=== PATIENT | female | born 1980 | race Caucasian/White ===

== ENCOUNTER → 2019-11-19 | Outpatient (REF) | payer OTHER ==
[2019-11-19 17:43] LABS: BLOOD UREA NITROGEN 13 MG/DL (7-18); CALCIUM LEVEL 9.4 MG/DL (8.5-10.1); CARBON DIOXIDE LEVEL 27 MEQ/L (21-32); CHLORIDE LEVEL 108 MEQ/L (98-107); CREATININE FOR GFR 0.69 MG/DL (0.55-1.30); GLOMERULAR FILTRATION RATE > 60.0 (>58); GLUCOSE, FASTING 94 MG/DL (70-100); POTASSIUM SERUM 4.3 MEQ/L (3.5-5.1); SODIUM LEVEL 142 MEQ/L (136-145); THYROID STIMULATING HORMONE 0.736 uIU/ML (0.358-3.740)
[2019-11-19 17:46] LABS: BASO % 0.7 % (0.0-1.0); EOS % 0.9 % (0.0-3.0); HEMATOCRIT 36.3 % (36.0-47.0); HEMOGLOBIN 11.7 g/dl (12.0-15.5); LYMPH # 1.6 10^3/uL (1.5-5.0); LYMPH % 35.1 % (24.0-44.0); MEAN CORPUSCULAR HGB CONC 32.2 g/dl (32.0-36.5); MONO # 0.4 10^3/uL (0.0-0.8); MONO % 8.1 % (0.0-5.0); NEUTROPHILS # 2.4 10^3/uL (1.5-8.5); PLATELET COUNT, AUTOMATED 296 10^3/uL (150-450); RED BLOOD COUNT 3.78 10^6/uL (4.00-5.40); WHITE BLOOD COUNT 4.4 10^3/uL (4.0-10.0)
== END ==
LOC: M SFHCLERA 10:36
PROVIDERS: ATTEND Family Medicine
DX: R00.2 Palpitations (principal)

== ENCOUNTER → 2019-11-25 | Outpatient (REF) | payer OTHER ==
[2019-11-25 17:31] LABS: APPEARANCE, URINE HAZY (CLEAR); BACTERIA, URINE AUTO NEGATIVE (NEGATIVE); BILIRUBIN, URINE AUTO NEGATIVE (NEGATIVE); BLOOD, URINE BLOOD NEGATIVE (NEGATIVE); COLOR, URINE YELLOW (YELLOW); GLUCOSE, URINE (UA) AUTO NEGATIVE (NEGATIVE); KETONE, URINE AUTO TRACE mg/dL (NEGATIVE); LEUKOCYTE ESTERASE, URINE AUTO NEGATIVE (NEGATIVE); NITRITE, URINE AUTO NEGATIVE (NEGATIVE); PROTEIN, URINE AUTO NEGATIVE (NEGATIVE); RBC, URINE AUTO 0 /HPF (0-3); SPECIFIC GRAVITY URINE AUTO 1.021 (1.002-1.035); SQUAMOUS EPITHELIAL CELL UR AU 1 /HPF (0-6); UROBILINOGEN, URINE AUTO 0.2 mg/dL (0.0-2.0); WBC, URINE AUTO 0 /HPF (0-3)
== END ==
LOC: M SFHCLERA 16:47
PROVIDERS: ATTEND Family Medicine
DX: R35.0 Frequency of micturition (principal)

== ENCOUNTER → 2019-11-27 | Outpatient (CLI) | payer OTHER ==
--- NOTE | 2019-11-29 19:39 | HOLTMON ---
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 23 hours and 28 minutes were usable for analysis. Baseline mechanism was sinus rhythm with normal AV conduction and narrow QRS complex. Minimum HR was 44 bpm, average HR 73 bpm and maximum HR 130 bpm. There were no pauses, 1 PVC and 4 PAC's. No atrial fibrillation. There were total 7 manual transmissions with reported symptoms of palpitations and dizziness. All transmissions corresponded to sinus rhythm. Overall unremarkable Holter monitor. Electronically Signed on 11-29-2019 19:39:31 EST by Leyla Bob
== END ==
LOC: M EKG 10:05
PROVIDERS: ATTEND Family Medicine
DX: R00.2 Palpitations (principal)

== ENCOUNTER → 2020-03-14 | Outpatient (REF) | payer OTHER ==
[2020-03-14 18:02] LABS: BASO # 0.1 10^3/uL (0.0-0.2); BASO % 0.8 % (0.0-1.0); EOS # 0.1 10^3/uL (0.0-0.5); EOS % 1.1 % (0.0-3.0); HEMATOCRIT 38.1 % (36.0-47.0); HEMOGLOBIN 13.2 g/dl (12.0-15.5); LYMPH # 2.5 10^3/uL (1.5-5.0); LYMPH % 37.4 % (24.0-44.0); MEAN CORPUSCULAR HEMOGLOBIN 31.7 pg (27.0-33.0); MEAN CORPUSCULAR HGB CONC 34.6 g/dl (32.0-36.5); MEAN CORPUSCULAR VOLUME 91.6 fl (80.0-96.0); MONO # 0.4 10^3/uL (0.0-0.8); MONO % 6.5 % (0.0-5.0); NEUTROPHILS # 3.6 10^3/uL (1.5-8.5); NEUTROPHILS % 53.9 % (36.0-66.0); PLATELET COUNT, AUTOMATED 265 10^3/uL (150-450); RED BLOOD COUNT 4.16 10^6/uL (4.00-5.40); WHITE BLOOD COUNT 6.6 10^3/uL (4.0-10.0)
[2020-03-14 18:23] LABS: ALT/SGPT 21 U/L (12-78); BILIRUBIN,TOTAL 0.4 MG/DL (0.2-1.0); BLOOD UREA NITROGEN 11 MG/DL (7-18); CALCIUM LEVEL 9.1 MG/DL (8.5-10.1); CARBON DIOXIDE LEVEL 29 MEQ/L (21-32); CHLORIDE LEVEL 105 MEQ/L (98-107); CHOLESTEROL LEVEL 231 MG/DL (<200); CHOLESTEROL RISK RATIO 2.924 (<5); CREATININE FOR GFR 0.63 MG/DL (0.55-1.30); FERRITIN 42 NG/ML (8-252); FOLATE 14.6 NG/ML; GLOMERULAR FILTRATION RATE > 60.0 (>58); GLUCOSE, FASTING 105 MG/DL (70-100); HDL CHOLESTEROL 79 MG/DL (>40); LDL CHOLESTEROL 126 MG/DL (<100); NON-HDL-C 152 MG/DL; POTASSIUM SERUM 4.2 MEQ/L (3.5-5.1); SODIUM LEVEL 139 MEQ/L (136-145); TOTAL 25(OH) VITAMIN D 35.3 NG/ML (30.0-100.0); TRIGLYCERIDES LEVEL 129 MG/DL (<150); VITAMIN B12 LEVEL 679 PG/ML
== END ==
LOC: M SFHCPLAZ 15:16
PROVIDERS: ATTEND Family Medicine
DX: E03.9 Hypothyroidism, unspecified (principal); Z98.84 Bariatric surgery status; Z13.220 Encounter for screening for lipoid disorders

== ENCOUNTER → 2020-04-16 | Outpatient (CLI) | payer OTHER | LOC: M LAB 09:18 | PROVIDERS: ATTEND Surgery ==

== ENCOUNTER → 2020-04-19 | Outpatient (CLI) | payer OTHER ==
--- NOTE | 2020-04-19 23:34 | REP ---
BILATERAL DIAGNOSTIC MAMMOGRAM WITH 3D TOMOSYNTHESIS AND BILATERAL BREAST ULTRASOUND: Family history of breast cancer in maternal aunt at age 45. [facility] lifetime risk of breast cancer is 17.0%. HISTORY: Two palpable lumps 12 o'clock and 10 o'clock right breast as well as a palpable lump left upper outer quadrant. These areas are marked on the skin. Comparison made with prior mammogram 04/14/2019 and 10/15/2018. Moderate fibroglandular tissue is seen bilaterally. There is no mammographic evidence of a mass. No clustered microcalcifications are seen. Real-time sonographic evaluation of bilateral breasts performed at the site of the three palpable lumps. At the 1-o'clock region of the right breast at the site of the palpable lump, no discrete cystic or solid nodule is seen. At the 10-o'clock region of the right breast at the site of the palpable lump, approximately 7 cm from the nipple, there is a somewhat lobulated hypoechoic lesion measuring 1.6 x 1.6 x 0.8 cm. There does not appear to be significant internal blood flow with Doppler evaluation. This may represent a complex cyst, but a solid component cannot be excluded. Recommend ultrasound-guided sampling. At the site of the palpable lump left breast 1-o'clock region, no discrete cystic or solid nodule is seen. Volpara breast density is C. IMPRESSION: ACR 4, suspicious. No mammographic abnormality is seen bilaterally. There is no mammographic or sonographic abnormality at the site of the palpable lumps right breast 1 o'clock and left breast 1 o'clock. However, at the 10-o'clock position of the right breast approximately 7 cm from the nipple at the site of the palpable lump, there is a lobulated hypoechoic lesion measuring 1.6 x 1.6 x 0.8 cm. This may represent a complex cyst. I would recommend ultrasound-guided aspiration/biopsy. BIRADS 4: BI-RADS/ACR category 4 mammogram. Suspicious Abnormality - biopsy should be considered. This mammogram was interpreted with the aid of an FDA-approved computer-aided detection system. The patient states she/he had a clinical breast exam in 04/06. The patient letter being requested is M4.
== END ==
LOC: M WHC 13:55
PROVIDERS: ATTEND Surgery
DX: R92.8 Other abnormal and inconclusive findings on diagnostic imaging of breast (principal); Z80.3 Family history of malignant neoplasm of breast; N63.10 Unspecified lump in the right breast, unspecified quadrant; N63.20 Unspecified lump in the left breast, unspecified quadrant; I89.8 Other specified noninfective disorders of lymphatic vessels and lymph nodes
CPT/HCPCS: 76642; 77066; G0279

== ENCOUNTER → 2020-04-25 | Outpatient (CLI) | payer OTHER ==
--- NOTE | 2020-04-25 14:54 | REP ---
DIAGNOSTIC MAMMOGRAM, LEFT BREAST: Patient was recalled for additional views of the left breast and in particular the left axillary region to evaluate calcifications previously identified in left axillary lymph nodes. Comparison is made with prior studies of 10/15/2018 and 04/14/2019. Two left axillary lymph nodes are identified containing somewhat linear coarse calcifications. These are evaluated with additional magnification views. Comparing to the prior study in 2019, one of the lymph nodes demonstrated multiple punctate calcifications internally. These appear to have coalesced and become more coarse and benign in appearance. There is moderate diffuse fibroglandular tissue throughout the left breast. IMPRESSION: BIRADS 2: BI-RADS/ACR category 2 mammogram. Benign Findings. ACR 2 benign mammogram, left breast. Two lymph nodes are seen in the left axillary region. They demonstrate coarse benign-type calcifications, as discussed above.
--- NOTE | 2020-04-26 09:11 | REP ---
Clinical: Adenopathy by physical examination. Technique: Real time ricketts scale and color evaluation using linear high frequency transducer. Findings: Directed ultrasound examination of the right axillary region demonstrates multiple lymph nodes measuring up to 15 x 11 x 31 mm with other lymph nodes measuring roughly in the range of 6-11 mm maximal diameter. Directed ultrasound examination of the left axillary region demonstrates multiple lymph nodes measuring up to 25 x 8 x 18 mm with other lymph nodes measuring roughly in the range of 8-13 mm maximal diameter. Impression: Few mildly prominent but normal appearing bilateral axillary lymph nodes. Follow-up physical examination may be warranted.
== END ==
LOC: M WHC 10:31
PROVIDERS: ATTEND Surgery
DX: I89.8 Other specified noninfective disorders of lymphatic vessels and lymph nodes (principal); R92.1 Mammographic calcification found on diagnostic imaging of breast
CPT/HCPCS: 76882; 77065; G0279

== ENCOUNTER → 2020-05-04 | Outpatient (REF) | payer OTHER ==
[2020-05-04 11:57] LABS: BASO % 0.6 % (0.0-1.0); EOS # 0.1 10^3/uL (0.0-0.5); EOS % 0.7 % (0.0-3.0); HEMATOCRIT 38.7 % (36.0-47.0); HEMOGLOBIN 12.8 g/dl (12.0-15.5); LYMPH % 28.4 % (24.0-44.0); MEAN CORPUSCULAR HEMOGLOBIN 30.7 pg (27.0-33.0); MEAN CORPUSCULAR HGB CONC 33.1 g/dl (32.0-36.5); MEAN CORPUSCULAR VOLUME 92.8 fl (80.0-96.0); MONO # 0.5 10^3/uL (0.0-0.8); MONO % 6.5 % (0.0-5.0); NEUTROPHILS # 4.4 10^3/uL (1.5-8.5); NEUTROPHILS % 63.4 % (36.0-66.0); PLATELET COUNT, AUTOMATED 273 10^3/uL (150-450); RED BLOOD COUNT 4.17 10^6/uL (4.00-5.40); WHITE BLOOD COUNT 6.9 10^3/uL (4.0-10.0)
[2020-05-04 12:20] LABS: BLOOD UREA NITROGEN 11 MG/DL (7-18); C REACTIVE PROTEIN QUANTITATIV < 0.30 MG/DL (0.00-0.30); CALCIUM LEVEL 9.2 MG/DL (8.5-10.1); CARBON DIOXIDE LEVEL 30 MEQ/L (21-32); CHLORIDE LEVEL 104 MEQ/L (98-107); CREATININE FOR GFR 0.65 MG/DL (0.55-1.30); GLOMERULAR FILTRATION RATE > 60.0 (>58); GLUCOSE, FASTING 112 MG/DL (70-100); POTASSIUM SERUM 4.9 MEQ/L (3.5-5.1); SODIUM LEVEL 139 MEQ/L (136-145)
[2020-05-04 12:32] LABS: ERYTHROCYTE SEDIMENTATION RATE 7 mm/hr (0-20)
== END ==
LOC: M SFHCLERA 08:28
PROVIDERS: ATTEND Family Medicine
DX: M54.42 Lumbago with sciatica, left side (principal)

== ENCOUNTER → 2020-05-04 | Outpatient (CLI) | payer OTHER ==
--- NOTE | 2020-05-04 09:09 | REPPI ---
Clinical: Lumbar with left-sided sciatica. Technique: AP, lateral, flexion/extension, bilateral oblique and coned-down views of the lumbosacral spine. Findings: Alignment and lordosis maintained. No acute fracture / compression injury or subluxation. No spondylolysis or spondylolisthesis. Focal endplate sclerosis, disc space narrowing and mild hypertrophic facet changes noted at L5-S1. 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 Remainder examination is age-appropriate. Impression: 1. Early moderate focal degenerative spondylosis at L5-S1. 2. 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 Electronically Signed by Wong Villeda MD 05/04/2020 09:00 A
== END ==
LOC: M PLAIMG 08:29
PROVIDERS: ATTEND Family Medicine
DX: M54.42 Lumbago with sciatica, left side (principal); M47.816 Spondylosis without myelopathy or radiculopathy, lumbar region; Q76.49 Other congenital malformations of spine, not associated with scoliosis

== ENCOUNTER → 2020-05-11 | Outpatient (CLI) | payer OTHER ==
[2020-05-11 11:20] VITALS: BP 120/72
--- NOTE | 2020-05-11 14:16 | REP ---
DIAGNOSTIC MAMMOGRAM, RIGHT BREAST: Postbiopsy mammogram right breast performed. Patient had ultrasound guided biopsy of a hypoechoic lesion right breast region of 10-o'clock position is identified on the ultrasound of 04/19/2020. This was noted to be located 7 cm from the nipple. The mammogram shows a biopsy clip posteriorly in the upper outer quadrant of the right breast. Once again, moderate fibroglandular tissue is seen diffusely throughout the right breast.
--- NOTE | 2020-05-11 14:25 | REP ---
LEFT AXILLARY ULTRASOUND: Real-time sonographic evaluation of the left axillary region performed. There is a lymph node seen measuring 1.9 x 1.9 x 0.5 cm. There is an adjacent hypoechoic nodule measuring 4 x 6 x 5 mm.
--- NOTE | 2020-05-11 14:57 | REP ---
ULTRASOUND GUIDANCE FOR RIGHT BREAST BIOPSY: Ultrasound guidance was provided for Dr. Ravi who performed ultrasound guided biopsy of a hypoechoic lesion 10-o'clock position right breast, as seen on prior ultrasound 04/19/2020. The oval hypoechoic nodule is visualized on today's ultrasound images and the biopsy needle is seen in that region.
--- NOTE | 2020-05-19 15:18 | ROOPDOC ---
[facility] Report Of Operation Report of Operation DATE OF PROCEDURE: 05/11/20 PREPROCEDURE DIAGNOSES: right breast mass, possible complex cyst and left axillary lymph node with calcifications POSTPROCEDURE DIAGNOSES: same PROCEDURE: Right breast ultrasound guided attempted aspiration of R breast cystic lesion and followup biopsy with clip placement of the same lesion SURGEON: Tess Winter CLEARANCE CENTER MANAGER: ANESTHESIA: local ESTIMATED BLOOD LOSS: Approximately 1 mL. COMPLICATIONS: none REMARKS: Right breast mass was not cystic, R breast mass biopsy done successfully, clip is in expected location on post bx mammogram, Unable to identify the calcifications in the left axillary lymph node- additional L US images were obtained and sent to radiology for evaluation. DESCRIPTION OF PROCEDURE: Lidocaine 1% LOT [id number] Expiration 05/10 Sodium Bicarbonate 8.4% LOT [id number] Expiration 05/08 Hydromark clip LOT [id number] Expiration 12/30 SHAPE 4 Bx device: BARD [id number] x10 cm LOT [id number] Expiration 01/10 Informed consent was obtained. The most common risk and possible complications including bleeding, hematoma, bruising, infection, injury to surrounding structures were explained to the patient and she expressed understanding. Patient was placed on the bed in the supine position. Appropriate time out was done stating patients name, date of , and the procedure to be performed. The right breast was prepped and draped in the usual fashion. The ultrasound was used to confirm the location of the lesion in the right breast at 10:00 7 centimeters from the nipple. Plain Lidocaine 1% and 8.4% sodium bicarbonate 10:1 mix was used to anesthetize the skin, the biopsy site and tissues along the anticipated biopsy tract. 18G needle was used to attempt aspiration of the right breast lesion which was thought to be possible complex cyst. No fluid came out. We proceeded with the biopsy part. Small skin incision was made with blade number 11. BARD Marquee 14G cannula with introducer ([id number]) was inserted through the incision and advanced under the ultrasound guidance to position immediately adjacent to the lesion. Next, the introducer was removed and BARD Marquee 14G biopsy device was places in the cannula. Pre-biopsy imaging, and post-biopsy imaging were captured. Five good core biopsies were taken at various levels of the lesion. Specimen was placed in formaldehyde, labeled with appropriate biopsy site and patients name, and sent to pathology for evaluation. Next, the biopsy device was withdrawn and a clip introducer was inserted into the biopsy site via the cannula. The Hydromark clip was deployed under sonographic guidance. Post-clip placement image was captured. Manual pressure over the biopsy cavity and tract was held after the clip introducer was withdrawn. No bleeding was noted upon removal of the pressure. Next, we repositioned patient and attempted L axillary lymph node biopsy. The calcifications were not able to be found on the US however a possibly enlarged lymph node and adjacent hypoechoic lesion were found in low axilla. Additional sonographic views were sent to Radiology department for evaluation. Left axillary US biopsy was aborted at this time and will be done after additional imaging is reviewed by Radiology. Patient agrees with this plan. Post-biopsy mammogram of the right breast was obtained and showed clip in expected position. Postprocedural dressing was placed. Patient tolerated procedure well. Discharge instructions were discussed with the patient and she expressed understanding. TESS STAPLETON DO May 19, 2020 13:51
== END ==
LOC: M WHCPRO 08:48
PROVIDERS: ATTEND Surgery
DX: N60.21 Fibroadenosis of right breast (principal)

== ENCOUNTER → 2020-05-16 | Outpatient (REF) | payer OTHER ==
[2020-05-16 18:07] LABS: BLOOD UREA NITROGEN 10 MG/DL (7-18); CALCIUM LEVEL 9.2 MG/DL (8.5-10.1); CARBON DIOXIDE LEVEL 31 MEQ/L (21-32); CHLORIDE LEVEL 104 MEQ/L (98-107); CREATININE FOR GFR 0.55 MG/DL (0.55-1.30); GLOMERULAR FILTRATION RATE > 60.0 (>58); GLUCOSE, FASTING 86 MG/DL (70-100); POTASSIUM SERUM 4.2 MEQ/L (3.5-5.1); SODIUM LEVEL 138 MEQ/L (136-145)
== END ==
LOC: M PLALAB 15:33
PROVIDERS: ATTEND Surgery
DX: N63.20 Unspecified lump in the left breast, unspecified quadrant (principal); R59.9 Enlarged lymph nodes, unspecified; I89.8 Other specified noninfective disorders of lymphatic vessels and lymph nodes

== ENCOUNTER → 2020-07-20 | Outpatient (CLI) | payer OTHER ==
[2020-07-20 16:10] VITALS: BP 116/70
--- NOTE | 2020-07-21 04:37 | ROOPDOC ---
[facility] Report Of Operation Report of Operation DATE OF PROCEDURE: 07/20/20 PREPROCEDURE DIAGNOSES: left axillary lymph node with calcifications and left suspicious hypoechoic nodule in axilla POSTPROCEDURE DIAGNOSES: left axillary lymph node with calcifications and left suspicious hypoechoic nodule in axilla PROCEDURE: US guided biopsy of the left axillary lymph node and left axillary hypoechoic nodule with clips placement SURGEON: Tess Stapleton AGENCY TRAINER: ANESTHESIA: local ESTIMATED BLOOD LOSS: minimal COMPLICATIONS: none REMARKS: clips seen in good position, calcifications were seen in the lymph node cores DESCRIPTION OF PROCEDURE: Lidocaine 1% LOT [id number] Expiration 04/2023 Sodium Bicarbonate 8.4% LOT [id number] Expiration 04/2021 LYMPH NODE BX Hydromark clip LOT [id number] Expiration 03/2023 SHAPE 3 Bx device: TEMNO 18G LOT [id number] Expiration 03/2024 (NEW DEVICE PER SITE) HYPOECHOIC LESION BX Hydromark clip LOT [id number] Expiration 03/2023 SHAPE 4 Bx device: TEMNO 18G LOT [id number] Expiration 03/2024 (NEW DEVICE PER SITE) Informed consent was obtained. The most common risk and possible complications including bleeding, hematoma, bruising, infection, injury to surrounding structures were explained to the patient and she expressed understanding. Patient was placed on the bed in the supine position. Appropriate time out was done stating patients name, date of , and the procedure to be performed. The left axilla was prepped and draped in the usual fashion. The ultrasound was used to confirm the location of the suspicious lymph node and the adjacent mueller spicious hypoechoic nodule. Both lesions were located in lower medial aspect of left axilla. Procedure was started with biopsy of the suspicious lymph node. Plain Lidocaine 1% and 8.4% sodium bicarbonate 10:1 mix was used to anesthetize the skin, the bi opsy site and tissues along the anticipated biopsy tract. TEMNO 18 G biopsy device introducer with canula was placed though the skin and advanced under the ultrasound guidance to position immediately adjacent to the lymph node. Next, the introducer was removed and TEMNO 18 G biopsy device places in the cannula. Pre-biopsy imaging, and post-biopsy imaging were captured. Five good core biopsies were taken at various levels of the lymph node. Radiography was done of the collected cores and calcifications were observed in the cores. Specimen was then placed in formaldehyde, labeled with appropriate biopsy site and patients name, and sent to pathology for evaluation. Next, the biopsy device was withdrawn and a clip introducer was inserted into the biopsy site. The SHAPE 3 Hydromark clip was deployed under sonographic guidance. Post-clip placement image was captured. Manual pressure over the biopsy cavity and tract was held after the clip introducer was withdrawn. No bleeding was noted upon removal of the pressure. At this point, our attention was turned toward previously identified suspicious hypoechoic nodule seen in the proximity of the lymph node. Plain Lidocaine 1% and 8.4% sodium bicarbonate 10:1 mix was used to anesthetize the skin, the biopsy site and tissues along the anticipated biopsy tract. New TEMNO 18 G biopsy device introducer with canula was placed though the skin and advanced under the ultrasound guidance to position immediately adjacent to the hypoechoic nodule. Next, the introducer was removed and TEMNO 18 G biopsy device places in the cannula. Pre-biopsy imaging, and post-biopsy imaging were captured. Five good core biopsies were taken at various levels of the lesion. Radiography was done of the collected cores and no calcifications were observed in the cores. Specimen was then placed in formaldehyde, labeled with appropriate biopsy site and patients name, and sent to pathology for evaluation. Next, the biopsy device was withdrawn and a clip introducer was inserted into the biopsy site. The SHAPE 4 Hydromark clip was deployed under sonographic guidance. Post-clip placement image was captured. Manual pressure over the biopsy cavity and tract was held after the clip introducer was withdrawn. No bleeding was noted upon removal of the pressure. Post-biopsy mammogram of the left axilla was obtained and showed clips in expected position. Postprocedural dressing was placed. Patient tolerated procedure well. Discharge instructions were discussed with the patient and she expressed understanding. TESS STAPLETON DO Jul 21, 2020 04:37
--- NOTE | 2020-08-16 14:29 | REP ---
POST-BIOPSY MAMMOGRAM, LEFT BREAST TECHNIQUE: MLO and axillary CC views of the left breast were performed following ultrasound-guided biopsy of left axillary lymph nodes. FINDINGS: Two biopsy clips are seen adjacent to a lymph node containing diffuse amorphous radiodensity/calcification MTDD
--- NOTE | 2020-08-16 14:30 | REP ---
ULTRASOUND GUIDANCE FOR LEFT AXILLARY BIOPSY Ultrasound guidance was provided for Dr. Ravi for biopsy of two separate sites in the left axilla. A linear biopsy needle is visualized on several images. CHANTEL
--- NOTE | 2020-08-16 14:30 | REP ---
SPECIMEN RADIOGRAPH TECHNIQUE: Following ultrasound guided biopsy of lymph nodes containing calcifications in the left axillary region, specimen radiograph is performed. FINDINGS: A limited amount of soft tissue material was obtained. These obtained questionable tiny radiodensities. MTDD
== END ==
LOC: M WHCPRO 10:59
PROVIDERS: ATTEND Surgery
DX: R59.9 Enlarged lymph nodes, unspecified (principal); N63.20 Unspecified lump in the left breast, unspecified quadrant

== ENCOUNTER → 2020-08-29 | Outpatient (REF) | payer OTHER | LOC: M SFHCLERA 11:06 | PROVIDERS: ATTEND Nurse Practitioner Family | DX: R30.0 Dysuria (principal) ==

== ENCOUNTER → 2020-11-25 | Outpatient (REF) | payer OTHER ==
[2020-11-25 13:50] LABS: BASO % 0.8 % (0.0-1.0); EOS % 1.1 % (0.0-3.0); HEMATOCRIT 36.9 % (36.0-47.0); HEMOGLOBIN 11.8 g/dl (12.0-15.5); LYMPH # 1.7 10^3/uL (1.5-5.0); LYMPH % 44.4 % (24.0-44.0); MEAN CORPUSCULAR HEMOGLOBIN 29.3 pg (27.0-33.0); MEAN CORPUSCULAR VOLUME 91.6 fl (80.0-96.0); MONO # 0.3 10^3/uL (0.0-0.8); MONO % 7.1 % (0.0-5.0); NEUTROPHILS # 1.8 10^3/uL (1.5-8.5); NEUTROPHILS % 46.3 % (36.0-66.0); PLATELET COUNT, AUTOMATED 273 10^3/uL (150-450); RED BLOOD COUNT 4.03 10^6/uL (4.00-5.40); WHITE BLOOD COUNT 3.8 10^3/uL (4.0-10.0)
[2020-11-25 14:28] LABS: ALT/SGPT 21 U/L (12-78); BILIRUBIN,TOTAL 0.6 MG/DL (0.2-1.0); BLOOD UREA NITROGEN 14 MG/DL (7-18); CARBON DIOXIDE LEVEL 29 MEQ/L (21-32); CHLORIDE LEVEL 107 MEQ/L (98-107); CHOLESTEROL LEVEL 231 MG/DL (<200); CHOLESTEROL RISK RATIO 2.221 (<5); CREATININE FOR GFR 0.61 MG/DL (0.55-1.30); FERRITIN 13 NG/ML (8-252); FREE T4 0.91 NG/DL (0.76-1.46); GLOMERULAR FILTRATION RATE > 60.0 (>58); GLUCOSE, FASTING 84 MG/DL (70-100); HDL CHOLESTEROL 104 MG/DL (>40); IRON (FE) 90 UG/DL (50-170); LDL CHOLESTEROL 116 MG/DL (<100); NON-HDL-C 127 MG/DL; PERCENT SATURATION 24.7 % (13.2-45.0); POTASSIUM SERUM 4.3 MEQ/L (3.5-5.1); SODIUM LEVEL 141 MEQ/L (136-145); TOTAL 25(OH) VITAMIN D 30.5 NG/ML (30.0-100.0); TOTAL IRON BINDING CAPACITY 365 UG/DL (250-450); TOTAL PROTEIN 6.6 GM/DL (6.4-8.2); TRIGLYCERIDES LEVEL 55 MG/DL (<150); VITAMIN B12 LEVEL 620 PG/ML (247-911)
== END ==
LOC: M SFHCLERA 10:24
PROVIDERS: ATTEND Family Medicine
DX: E03.9 Hypothyroidism, unspecified (principal); E78.5 Hyperlipidemia, unspecified; Z98.84 Bariatric surgery status

== ENCOUNTER → 2020-12-26 | Outpatient (CLI) | payer OTHER ==
--- NOTE | 2020-12-26 18:18 | REP ---
INDICATION: UNSPECIFIED LUMP IN RIGHT BREAST UPPER OUTER QUADRANT. Status post ultrasound-guided needle biopsy procedure 11 May 2020 with result negative for malignancy, breast tissue with fibroadenoma this changes. COMPARISON: Comparison sonography 19 April 2020.. TECHNIQUE: Targeted right breast ultrasound 10 o'clock region where prior study showed a hypoechoic lesion which was subsequently biopsied with needle biopsy technique. FINDINGS: Targeted repeat right breast sonography again demonstrates a macrolobulated hypoechoic area with enhanced through transmission. Its long axis remains parallel to the skin. It is essentially unchanged measuring 19 x 16 x 8 mm. On previous sonography the lesion is seen to measure 19 mm by 16 mm x 8 mm by my measurement on those images. An echogenic needle biopsy marker clip is seen within hypoechoic lesion. IMPRESSION: Stable, previously biopsied hypoechoic nodule 10 o'clock position right breast. No change in appearance or size. BI-RADS category 2 benign findings. <Electronically signed by Sathish Kim > 12/26/20 [id number]
== END ==
LOC: M WHC 08:39
PROVIDERS: ATTEND Surgery
DX: N63.11 Unspecified lump in the right breast, upper outer quadrant (principal)

== ENCOUNTER → 2020-12-26 | Outpatient (REF) | payer OTHER ==
[2020-12-26 11:42] LABS: EOS # 0.1 10^3/uL (0.0-0.5); EOS % 3.2 % (0.0-3.0); HEMATOCRIT 37.5 % (36.0-47.0); HEMOGLOBIN 12.2 g/dl (12.0-15.5); LYMPH # 1.7 10^3/uL (1.5-5.0); MEAN CORPUSCULAR HEMOGLOBIN 29.8 pg (27.0-33.0); MEAN CORPUSCULAR HGB CONC 32.5 g/dl (32.0-36.5); MEAN CORPUSCULAR VOLUME 91.7 fl (80.0-96.0); MONO # 0.3 10^3/uL (0.0-0.8); MONO % 8.3 % (0.0-5.0); NEUTROPHILS # 1.9 10^3/uL (1.5-8.5); NEUTROPHILS % 45.3 % (36.0-66.0); PLATELET COUNT, AUTOMATED 269 10^3/uL (150-450); RED BLOOD COUNT 4.09 10^6/uL (4.00-5.40); WHITE BLOOD COUNT 4.1 10^3/uL (4.0-10.0)
== END ==
LOC: M SFHCLERA 08:05
PROVIDERS: ATTEND Family Medicine
DX: D72.9 Disorder of white blood cells, unspecified (principal)

== ENCOUNTER → 2021-01-17 | Outpatient (CLI) | payer OTHER ==
[~2021-01-17] MED LIST: PROHANCE 279.3MG/ML 15ML VIAL As Ordered ONE
--- NOTE | 2021-01-17 15:30 | REP ---
INDICATION: RT BREAST LUMP W/ CALCIFIED LYMPHNODES. COMPARISON: 06/21/2020. TECHNIQUE: Three Jaqui MRI imaging was performed with a dedicated breast coil. Axial, coronal, and sagittal T1 and T2 weighted scans were obtained with and without fat saturation in the usual fashion. The study includes dynamically acquired post gadolinium-enhanced imaging with image subtraction. Maximum intensity projection and multi planar reformation imaging is included as well. This study is interpreted with the aid of IPGD, an FDA approved computer aided detection (CAD) software program, on a dedicated breast MRI workstation. The gadolinium enhancement dose is 13 mL of intravenous ProHance. FINDINGS: Once again in the right breast, a biopsy clip is noted posteriorly and laterally in the right breast, at approximately the 10 o'clock position. This is within a nodular signal abnormality which demonstrates mixed low and high signal on T2 weighted images. There is diffuse enhancement following the intravenous administration of gadolinium. The margins of the mass are lobulated. The size is unchanged when compared to the prior MRI exam, approximately 1.5 cm in maximum diameter. Evaluation of the kinetics demonstrates new predominant areas of type 3 washout enhancement as well as other areas of type 2 enhancement. There are minimal peripheral areas of type 1 enhancement. The findings must be deemed as suspicious, as these enhancement characteristics were not present on the prior MRI exam. A biopsy clip is again seen in the left axillary region adjacent to a stable lymph node. No new axillary adenopathy is seen. No new suspicious mass or morphologic abnormality is seen in either breast. Two subcentimeter cysts are seen in the left breast. Moderate fibroglandular tissue is present diffusely bilaterally and there is mild background parenchymal enhancement diffusely. IMPRESSION: BI-RADS category 4 suspicious. Within the previously identified mass at 10 o'clock right breast which contains a biopsy clip there is new suspicious enhancement, with kinetics of both type 2 and type 3 enhancement within the lesion now predominating. Prior MRI enhancement pattern was type 1 and more benign in appearance. The size of the mass is unchanged. I would recommend ultrasound-guided biopsy of the mass at 10 o'clock right breast. <Electronically signed by Anthony Figueroa > 01/17/21 [id number]
== END ==
LOC: M RAD 12:34
PROVIDERS: ATTEND Surgery
DX: I89.8 Other specified noninfective disorders of lymphatic vessels and lymph nodes (principal); N63.11 Unspecified lump in the right breast, upper outer quadrant
CPT/HCPCS: A9576; C8908

== ENCOUNTER → 2021-01-25 | Outpatient (CLI) | payer OTHER ==
[~2021-01-25] MED LIST changes: +MULT-90 PO; +PROBCAP17 PO; -PROHANCE 279.3MG/ML 15ML VIAL As Ordered ONE
[2021-01-25 10:25] VITALS: BP 110/72
--- NOTE | 2021-01-25 13:55 | REP ---
INDICATION: N63.10 RT BREAST MASS, POST US GUIDED BIOPSY. Marker clip placement mammogram. COMPARISON: Comparison mammography May 11, 2020. TECHNIQUE: Cc and MLO and true mediolateral views of the right breast are obtained. This mammogram was interpreted with the aid of an FDA-approved computer-aided detection system. FINDINGS: Today's mammographic views demonstrate 2 needle biopsy marker clips in the upper outer quadrant the right breast. The new marker clip is seen within the upper outer quadrant nodule. No hematoma is seen. IMPRESSION: Marker clip in good position. RECOMMENDATION: Treatment depending on biopsy results. <Electronically signed by Sathish Kim > 01/25/21 [id number]
--- NOTE | 2021-01-25 13:56 | REP ---
INDICATION: N63.10 RT BREAST MASS,US GUIDED BIOPSY. Hypoechoic mass 10 o'clock position right breast, 7 cm from the nipple with HydroMARK clip present at site. COMPARISON: Comparison ultrasound December 26, 2019. Comparison MRI study January 17, 2021.. TECHNIQUE: Sonographic guidance. FINDINGS: Sonographic guidance is provided to Dr. Ravi performed ultrasound-guided needle biopsy procedure and marker clip placement for lesion in the right breast. IMPRESSION: Sonographic guidance. Procedural imaging. <Electronically signed by Sathish Kim > 01/25/21 [id number]
--- NOTE | 2021-01-28 12:46 | ROOPDOC ---
[facility] Report Of Operation Report of Operation DATE OF PROCEDURE: 01/25/21 DIAGNOSIS: right breast lesion, previously biopsied, now with suspicious enhancement on MRI PROCEDURE: Ultrasound guided biopsy of right breast suspicious lesion with clip placement SURGEON: Tess Stapleton BLOOD LOSS: minimal COMPLICATIONS: none Lidocaine 1% LOT [id number] Expiration 02/2024 Sodium Bicarbonate 4% LOT [id number] Expiration 02/2021 Hydromark clip LOT [id number] Expiration 04/2023 SHAPE : 3 Bx device: BARD [id number] x10 cm LOT [id number] Expiration 11/2021 Informed consent was obtained. The most common risk and possible complications including bleeding, hematoma, bruising, infection, injury to surrounding stru ctures were explained to the patient and the patient expressed understanding. Patient was placed on the bed in the supine position. Appropriate time out was done stating patients name, date of , and the procedure to be performed. The right breast was prepped and draped in the usual fashion. The ultrasound was used to confirm the location of the lesion in the right breast at 10:00, which was previously biopsied last year. Hydromark clip was seen at the inferior portion of the lesion. Plain Lidocaine 1% and 4 sodium bicarbonate 10:2 mix was used to anesthetize the skin, the biopsy site and tissues along the anticipated biopsy tract. Small skin incision was made with blade number 11. BARD Marquee 14G cannula with introducer ([id number] was inserted through the incision and advanced under the ultrasound guidance to position immediately adjacent to the lesion. Next, the introducer was removed and BARD Marquee 14G biopsy device was places in the cannula. Pre-biopsy imaging, and post-biopsy imaging were captured. Five good core biopsies were taken at various levels of the lesion. Specimen was placed in formaldehyde, labeled with appropriate biopsy site and patients name, and sent to pathology for evaluation. Attention was paid to try not to disrupt the pre viously placed hydromark clip in this location. Unfortunately at some point of the procedure previously placed hydromark clip became not visible and there was a concern of clip disturbance with possible clip removal along with the biopsy samples. Decision was made to place another hydromark clip to localize the biopsy site Next, the biopsy device was withdrawn and a clip introducer was inserted into the biopsy site via the cannula. The SHAPE 3 Hydromark clip was deployed under sonographic guidance. Post-clip placement image was captured. Manual pressure over the biopsy cavity and tract was held after the clip introducer was withdrawn. No bleeding was noted upon removal of the pressure. Post-biopsy mammogram of the right breast was obtained and showed 2 clips in expected position. Postprocedural dressing was placed. Patient tolerated procedure well. Discharge instructions were discussed with the patient and the patient expressed understanding. TESS STAPLETON. DO Jan 28, 2021 12:46
== END ==
LOC: M WHCPRO 08:49
PROVIDERS: ATTEND Surgery
DX: N60.11 Diffuse cystic mastopathy of right breast (principal); N63.10 Unspecified lump in the right breast, unspecified quadrant

== ENCOUNTER → 2021-02-08 | Outpatient (REF) | payer OTHER | LOC: M SFHCWAGY 13:19 | PROVIDERS: ATTEND Surgery | DX: N61.0 Mastitis without abscess (principal) ==

== ENCOUNTER → 2021-03-02 | Outpatient (CLI) | payer OTHER ==
[~2021-03-02] MED LIST changes: +CITA10TA5 PO; +HYDR-643 PO
== END ==
LOC: M LABSMTC 11:43
PROVIDERS: ATTEND Anesthesiology
DX: Z01.818 Encounter for other preprocedural examination (principal); Z11.52 Encounter for screening for COVID-19

== ENCOUNTER → 2021-03-02 | Outpatient (REF) | payer OTHER ==
[2021-03-02 13:57] LABS: BASO % 0.8 % (0.0-1.0); EOS % 0.8 % (0.0-3.0); HEMATOCRIT 38.1 % (36.0-47.0); HEMOGLOBIN 12.3 g/dl (12.0-15.5); LYMPH # 1.6 10^3/uL (1.5-5.0); LYMPH % 32.2 % (24.0-44.0); MEAN CORPUSCULAR HEMOGLOBIN 30.1 pg (27.0-33.0); MEAN CORPUSCULAR HGB CONC 32.3 g/dl (32.0-36.5); MEAN CORPUSCULAR VOLUME 93.4 fl (80.0-96.0); MONO # 0.4 10^3/uL (0.0-0.8); MONO % 7.7 % (2.0-8.0); NEUTROPHILS % 58.3 % (36.0-66.0); PLATELET COUNT, AUTOMATED 250 10^3/uL (150-450); RED BLOOD COUNT 4.08 10^6/uL (4.00-5.40); WHITE BLOOD COUNT 5.1 10^3/uL (4.0-10.0)
[2021-03-02 15:25] LABS: ALBUMIN 3.9 GM/DL (3.2-5.2); ALT/SGPT 20 U/L (12-78); BILIRUBIN,TOTAL 0.5 MG/DL (0.2-1.0); BLOOD UREA NITROGEN 11 MG/DL (7-18); CARBON DIOXIDE LEVEL 32 MEQ/L (21-32); CHLORIDE LEVEL 104 MEQ/L (98-107); CREATININE FOR GFR 0.59 MG/DL (0.55-1.30); GLOMERULAR FILTRATION RATE > 60.0 (>58); GLUCOSE, FASTING 107 MG/DL (70-100); POTASSIUM SERUM 4.3 MEQ/L (3.5-5.1); SODIUM LEVEL 139 MEQ/L (136-145); TOTAL PROTEIN 6.8 GM/DL (6.4-8.2)
== END ==
LOC: M SFHCLERA 11:54
PROVIDERS: ATTEND Family Medicine
DX: Z01.818 Encounter for other preprocedural examination (principal)

== ENCOUNTER → 2021-03-02 | Outpatient (CLI) | payer OTHER ==
--- NOTE | 2021-03-03 06:19 | REPPI ---
INDICATION: Z01.818 PRE OP EXAM COMPARISON: None. TECHNIQUE: PA and lateral. FINDINGS: The mediastinum and cardiac silhouette are normal. The lung zamorano are clear and without acute consolidation, effusion, or pneumothorax. The skeletal structures are intact and normal. IMPRESSION: No acute cardiopulmonary process. <Electronically signed by Wong Villeda > 03/03/21 0615
== END ==
LOC: M PLAIMG 11:55
PROVIDERS: ATTEND Family Medicine
DX: Z01.818 Encounter for other preprocedural examination (principal)

== ENCOUNTER 2021-03-07 06:20 | Day surgery (SDC) | payer OTHER ==
[~2021-03-07] VITALS: Ht 165.1 cm; Wt 71.4 kg
[~2021-03-07 06:20] MED LIST changes: +LIDOCAINE 1% MDV 20ML VIAL SQ PRN
[2021-03-07] MEDS ORDERED: HEPARIN SOD (PORCINE) 5000UNITS/ML 1ML VIAL/SYRINGE SQ ONE (07:00)
[2021-03-07] MEDS ORDERED: ceFAZolin SOD 2 GM in IV 1 EA IV ONE (07:00)
[2021-03-07] MEDS ORDERED: LR 1,000 ML IV ONE (07:00)
[2021-03-07] MEDS ORDERED: BUPIVACAINE HCL 0.25% 30ML VIAL As Ordered ONE (07:11)
[2021-03-07] MEDS ORDERED: LIDOCAINE 1% SDV 30ML VIAL As Ordered ONE (07:11)
[2021-03-07] MEDS ORDERED: dexameTHASONE 4 MG/ML 1ML VIAL (J1100 PER 1MG) As Ordered ONE (07:18)
[2021-03-07] MEDS ORDERED: MIDAZOLAM INJ 2MG/2ML VIAL (J2250 PER 1MG) As Ordered ONE (07:18)
[2021-03-07] MEDS ORDERED: propofoL 200 MG/20 ML VIAL As Ordered ONE (07:18)
[2021-03-07] MEDS ORDERED: fentaNYL 100 MCG/2 ML INJECTION (J3010) As Ordered ONE ×2 (07:18→08:52)
[2021-03-07] MEDS ORDERED: LIDOCAINE 2% 100MG/5ML SDV (FOR ANES.) As Ordered ONE (07:18)
[2021-03-07] MEDS ORDERED: ONDANSETRON 4MG/2ML VIAL As Ordered ONE (07:20)
[2021-03-07] MEDS ORDERED: ePHEDrine SULFATE 25 MG/5 ML(5MG/ML) SYRINGE As Ordered ONE (08:00)
[2021-03-07] MEDS ORDERED: ACETAMINOPHEN 1000MG 100ML IV BTL (OFIRMEV) (J0131 PER 10MG) As Ordered ONE (08:04)
[2021-03-07] MEDS ORDERED: ROXI1TAB2 PO (09:48)
[2021-03-07] MEDS ORDERED: fentaNYL 100 MCG/2 ML INJECTION (J3010) IV PRN (09:55)
[2021-03-07] MEDS ORDERED: LR 1,000 ML IV SCH (09:55)
[2021-03-07] MEDS ORDERED: oxyCODONE 5MG TAB PO PRN (09:55)
[2021-03-07] MEDS ORDERED: ONDANSETRON 4MG/2ML VIAL IV PRN (09:55)
[2021-03-07 10:50] VITALS: BP 138/93
--- NOTE | 2021-03-07 10:56 | REP ---
INDICATION: RIGHT BREAST MASS. COMPARISON: None. TECHNIQUE: Sonographic guidance. FINDINGS: Sonographic guidance is provided to Dr. Ravi performed a ultrasound-guided wire needle localization procedure. IMPRESSION: Procedural imaging. Sonographic guidance. <Electronically signed by Sathish Kim > 03/07/21 [id number]
--- NOTE | 2021-03-07 15:58 | REP ---
INDICATION: RIGHT BREAST MASS. COMPARISON: Comparison mammography January 25, 2021.. TECHNIQUE: Four views including photograph. FINDINGS: Specimen radiography demonstrates the Kopan's wire and 2 needle biopsy marker clips within the specimen. One of these is on the at edge of the specimen opposite the tip of the localizer wire. IMPRESSION: Specimen radiography shows 2 needle biopsy marker clips. <Electronically signed by Sathish Kim > 03/07/21 [id number]
--- NOTE | 2021-03-08 12:40 | ROOPDOC ---
[facility] Report Of Operation Report of Operation DATE OF PROCEDURE: 03/07/21 PREPROCEDURE DIAGNOSES: Right breast mass POSTPROCEDURE DIAGNOSES: Right breast mass PROCEDURE: Right breast excisional biopsy with intraop wire placement and intraop specimen radiography SURGEON: Tess Stapleton ANESTHESIA: general ESTIMATED BLOOD LOSS: Approximately 25 mL. COMPLICATIONS: none REMARKS: 2 hydromark clips and the wire in the specimen DESCRIPTION OF PROCEDURE: INDICATIONS: Ms. Mikala Aranda is a 40-year-old woman who was found to have a suspicious right breast mass on on mammogram. This was evaluated with US and sonographic correlate was found at 10:00. US guided biopsy of the right breast 10:00 lesion was done May 12 2020 came back as a breast tissue with fibroadenomatous changes. 6 month post bx US of the lesion was done and it appeared stable on US. In the meantime patient also had MRI of the breast which showed type 1 enhancement around the right breast lesion and 6 month f/u MRI was recommended. The 6 month follow-up MRI showed a change in enhancement around the right breast lesion with predominantly type 2 and 3 enhancement. Re- biopsy of the right breast lesion was recommended and done on 01/25/21. 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 Due to concern of abnormal enhancement an excisional biopsy of the right breast 10:00 mass was offered to the patient. She was medically cleared for surgery by her primary care doctor. Risks and possible complications of surgical procedure including bleeding, infection and injury to surrounding structures were explained to the patient and she wished to proceed. Consent was signed. My initials were placed on the operative site. Subcutaneous injection of 5000 units of heparin was done. DETAILS: Patient was taken to the operating room and placed on the operating room table. A sign in was called stating patients name, date of and the procedure to be done. Preoperative antibiotics were infused. Smooth induction of general anesthesia was done. Patients hands were extended on arm rests. Care was taken not to over extend the arms. Pillow was placed under the knees and a foam was placed under the heels. Sequential compression devices were placed and assured to function correctly. Procedure was started with right breast intraop wire localization. Appropriate time out was done and patients name, date of , and the procedure to be d one were confirmed. Right breast was cleaned by me. Intraoperative ultrasound was used to confirm location of the Hydromark clip. Location of the clip was marked on the skin as well. 21 G Kopans Breast Lesion Localization Needle was used to place 25 cm wire. The wire was placed next to the clip and the lesion. The end of the wire was passed slightly distal to the clip. The images were captured confirming adequate placement of the localizing wire. Architect Manager assisted with the wire placement. Next, patients right breast and axilla were prepped and draped in the usual fashion. Care was taken not to displace the wire. Appropriate time out was done again prior second part of the procedure. Patients name, date of , and the procedure to be done were confirmed. Next, local anesthetic using 1% lidocaine and 0.25 % Marcaine 50/50 mix was injected at the site of planned periareolar incision. The incision was made with the scalpel. Subcutaneous skin flaps were raised and the guide wire was carefully pulled into the wound. Dissection was carries along the wire until the previously marked on the skin area of target lesion location was encountered. At this point, wider excision of the tissue surrounding the wire was done. The Hydromark clip was identified in the tissue with intraoperative hockey stick ultrasound probe. The end of the wire was identified with palpation. The excisional biopsy specimen was carefully removed from the breast keeping its proper orientation and moved to the back table where margins were marked with the surgical inking kit following the standard colors recommendations. Specimen was then placed on the grid and placed in [employer] Specimen Imaging System. The specimen measured 4.5 cm x 3 cm. The image revealed the wire and the two Hydromark clips in the specimen. The specimen was labeled with patients name and right excisional biopsy and sent to pathology. Next, the wound was irrigated thoroughly and adequate hemostasis was assured. Additional local anesthetic was injected into surrounding tissues. space was approximated with 2-0 Vicryl. The dermis was closed with 3-0 Vicryl and skin was closed with 4-0 Monocryl. Surgical glue was were placed over the incision. Patient emerged from the anesthesia without any problems. Fluffs were placed over the operative site and patients chest was wrapped snuggly in the ARTIS wrap. Sponge and instrument counts were done and were correct. Patient tolerated procedure well and was taken to recovery unit in stable condition. TESS STAPLETON DO Mar 08, 2021 12:40
== END 2021-03-07 11:02 | disposition home or self-care (01) ==
LOC: M SDC 06:20
PROVIDERS: ATTEND Surgery
DX: D24.1 Benign neoplasm of right breast (principal); K21.9 Gastro-esophageal reflux disease without esophagitis; F41.9 Anxiety disorder, unspecified; K58.9 Irritable bowel syndrome, unspecified; E03.9 Hypothyroidism, unspecified; E78.5 Hyperlipidemia, unspecified; Z98.84 Bariatric surgery status; Z86.711 Personal history of pulmonary embolism; Z91.030 Bee allergy status; Z91.013 Allergy to seafood; Z88.1 Allergy status to other antibiotic agents; Z88.8 Allergy status to other drugs, medicaments and biological substances; Z79.899 Other long term (current) drug therapy
CPT/HCPCS: 19125; 36415; 76942; 86850; 86900; 86901; 88307; J0131; J0690; J1100; J1644; J2250; J2405; J3010

== ENCOUNTER → 2021-05-01 | Outpatient (REF) | payer OTHER ==
[~2021-05-01] MED LIST changes: -LIDOCAINE 1% MDV 20ML VIAL SQ PRN; +ROXI1TAB2 PO
== END ==
LOC: M SFHCLERA 15:08
PROVIDERS: ATTEND Nurse Practitioner Family
DX: R10.12 Left upper quadrant pain (principal); Z53.9 Procedure and treatment not carried out, unspecified reason

== ENCOUNTER → 2022-02-15 | Outpatient (CLI) | payer OTHER ==
[~2022-02-15] MED LIST changes: -CITA10TA5 PO; +CITA10TA7 PO; +CITA20TA6 PO; +METH20CA2 PO; +PERCOCET PO; +ZYRTTAB8 PO
== END ==
LOC: M LABSMTC 10:39
PROVIDERS: ATTEND Anesthesiology
DX: Z01.818 Encounter for other preprocedural examination (principal); Z11.52 Encounter for screening for COVID-19

== ENCOUNTER 2022-02-20 09:59 | Observation (INO) | payer OTHER ==
[~2022-02-20] VITALS: Ht 165.1 cm; Wt 72.3 kg
[~2022-02-20 09:59] MED LIST changes: +HEPARIN SOD (PORCINE) 5000UNITS/ML 1ML VIAL/SYRINGE SQ ONE; +LIDOCAINE 1% MDV 20ML VIAL SQ PRN; +LR 1,000 ML IV ONE; -PERCOCET PO; +ceFAZolin SOD 2 GM in IV 1 EA IV ONE
[2022-02-20] MEDS ORDERED: fentaNYL 250 MCG/5 ML INJECTION As Ordered ONE (11:11)
[2022-02-20] MEDS ORDERED: ROCURONIUM BROMIDE 50 MG/5 ML VIAL As Ordered ONE ×2 (11:11→14:09)
[2022-02-20] MEDS ORDERED: dexameTHASONE 4 MG/ML 1ML VIAL (J1100 PER 1MG) As Ordered ONE (11:11)
[2022-02-20] MEDS ORDERED: LIDOCAINE 2% 100MG/5ML SDV (FOR ANES.) As Ordered ONE ×2 (11:11→15:40)
[2022-02-20] MEDS ORDERED: propofoL 200 MG/20 ML VIAL As Ordered ONE (11:11)
[2022-02-20] MEDS ORDERED: MIDAZOLAM INJ 2MG/2ML VIAL (J2250 PER 1MG) As Ordered ONE (11:11)
[2022-02-20] MEDS ORDERED: ONDANSETRON 4MG/2ML VIAL As Ordered ONE (11:12)
[2022-02-20] MEDS ORDERED: GENTAMICIN SULF 80MG/2ML VIAL As Ordered ONE (13:01)
[2022-02-20] MEDS ORDERED: BUPIVACAINE LIPOSOME/PF 1.3% 20ML VIAL (13.3MG/ML)(EXPAREL) As Ordered ONE (13:01)
[2022-02-20] MEDS ORDERED: BUPIVACAINE HCL 0.25% 10ML VIAL As Ordered ONE (13:01)
[2022-02-20] MEDS ORDERED: SEVOFLURANE INHAL SOLN 250 ML BTL As Ordered ONE (13:16)
[2022-02-20] MEDS ORDERED: METOCLOPRAMIDE INJ 10MG/2ML VIAL (J2765 PER 1) As Ordered ONE (14:22)
[2022-02-20] MEDS ORDERED: SUGAMMADEX SODIUM 500 MG/5 ML VIAL (BRIDION) As Ordered ONE (14:35)
[2022-02-20] MEDS ORDERED: HYDROmorphone HCL 2MG/ML 1ML VIAL As Ordered ONE (14:35)
[2022-02-20] MEDS ORDERED: ePHEDrine SULFATE 25 MG/5 ML(5MG/ML) SYRINGE As Ordered ONE (14:54)
[2022-02-20] MEDS ORDERED: PHENYLephrine 500MCG 5ML (100MCG/ML) SYRINGE As Ordered ONE (14:54)
[2022-02-20] MEDS ORDERED: hydrOXYzine 10 MG TAB PO PRN (15:55)
[2022-02-20] MEDS ORDERED: ONDANSETRON 4MG/2ML VIAL IV PRN ×2 (15:55→16:25)
[2022-02-20] MEDS ORDERED: METOCLOPRAMIDE INJ 10MG/2ML VIAL (J2765 PER 1) IV PRN (16:25)
[2022-02-20] MEDS ORDERED: LR 1,000 ML IV SCH (16:25)
[2022-02-20] MEDS ORDERED: HYDROMORPHONE HCL 0.5 MG/ 0.5 ML SYRINGE (J1170 PER 1) IV PRN (16:25)
[2022-02-20] MEDS ORDERED: fentaNYL 100 MCG/2 ML INJECTION IV PRN (16:25)
[2022-02-20] MEDS ORDERED: oxyCODONE 5MG TAB PO PRN (16:25)
[2022-02-20] MEDS: LR 1,000 ML IV SCH ×2 (16:40→19:07)
[2022-02-20 17:18] LABS: HEMATOCRIT 36.7 % (36.0-47.0); HEMOGLOBIN 13.4 g/dl (12.0-15.5); MEAN CORPUSCULAR HEMOGLOBIN 32.9 pg (27.0-33.0); MEAN CORPUSCULAR HGB CONC 36.5 g/dl (32.0-36.5); MEAN CORPUSCULAR VOLUME 90.2 fl (80.0-96.0); PLATELET COUNT, AUTOMATED 237 10^3/uL (150-450); RED BLOOD COUNT 4.07 10^6/uL (4.00-5.40)
[2022-02-20 18:09] VITALS: BP 126/75
[2022-02-20] MEDS: ACETAMINOPHEN TAB 650MG DOSE (2X325MG) PO PRN (18:24)
[2022-02-20 18:39] VITALS: BP 124/76
[2022-02-20 20:00] VITALS: BP 121/75
[2022-02-20 21:00] VITALS: BP 121/75
[2022-02-20 22:00] VITALS: BP 113/74
[2022-02-20] MEDS ORDERED: oxyCODONE 5MG TAB PO ONE (22:00)
[2022-02-20 23:00] VITALS: BP 113/74
[2022-02-21] MEDS ORDERED: HEPARIN SOD (PORCINE) 5000UNITS/ML 1ML VIAL/SYRINGE SQ SCH (02:00)
[2022-02-21] MEDS: ACETAMINOPHEN TAB 650MG DOSE (2X325MG) PO PRN (03:05)
[2022-02-21 06:00] VITALS: BP 113/69
[2022-02-21] MEDS ORDERED: CitaloPRAM (CeleXA) 20 MG TAB PO SCH (09:00)
[2022-02-21] MEDS ORDERED: PERCOCET 5MG/325MG TAB PO PRN (09:55)
[2022-02-21 10:00] VITALS: BP 110/64
[2022-02-21] MEDS ORDERED: PERCOCET PO (11:24)
== END 2022-02-21 12:35 | disposition home or self-care (01) ==
LOC: M SDC 09:59 → M MS5PR 15:58
PROVIDERS: ADMIT Plastic Surgery Surgery of the Hand; ATTEND Plastic Surgery Surgery of the Hand
DX: M54.06 Panniculitis affecting regions of neck and back, lumbar region (principal); Z98.84 Bariatric surgery status; K58.8 Other irritable bowel syndrome; K21.9 Gastro-esophageal reflux disease without esophagitis; F41.9 Anxiety disorder, unspecified; Z86.711 Personal history of pulmonary embolism; Z79.899 Other long term (current) drug therapy; Z88.1 Allergy status to other antibiotic agents; Z88.8 Allergy status to other drugs, medicaments and biological substances; Z91.013 Allergy to seafood; Z91.030 Bee allergy status; Z87.19 Personal history of other diseases of the digestive system
CPT/HCPCS: 15830; 15847; 36415; 85027; 88300; 96372; C9290; J0690; J1100; J1170; J1580; J1644; J2250; J2370; J2405; J2765; J3010

== ENCOUNTER → 2022-10-21 | Outpatient (CLI) | payer OTHER ==
[~2022-10-21] MED LIST changes: -HEPARIN SOD (PORCINE) 5000UNITS/ML 1ML VIAL/SYRINGE SQ ONE; -LIDOCAINE 1% MDV 20ML VIAL SQ PRN; -LR 1,000 ML IV ONE; +PERCOCET PO; -ceFAZolin SOD 2 GM in IV 1 EA IV ONE
== END ==
LOC: M LABSMTC 09:19
PROVIDERS: ATTEND Anesthesiology
DX: Z01.812 Encounter for preprocedural laboratory examination (principal); Z11.52 Encounter for screening for COVID-19

== ENCOUNTER 2022-10-25 06:13 | Observation (INO) | payer OTHER ==
[~2022-10-25] VITALS: Ht 165.1 cm; Wt 76.2 kg
[2022-10-25] VITALS (7 sets, daily range): BP systolic 120–152; BP diastolic 72–82
[~2022-10-25 06:13] MED LIST changes: +METH20TA31 PO; +MUPI2OI; +ceFAZolin SOD 2 GM in IV 1 EA IV ONE
[2022-10-25] MEDS ORDERED: LR 1,000 ML IV SCH (07:10)
[2022-10-25] MEDS ORDERED: ROCURONIUM BROMIDE 50 MG/5 ML VIAL As Ordered ONE ×4 (08:14→12:16)
[2022-10-25] MEDS ORDERED: ACETAMINOPHEN 1000MG 100ML IV BAG As Ordered ONE (08:14)
[2022-10-25] MEDS ORDERED: propofoL 200 MG/20 ML VIAL As Ordered ONE (08:14)
[2022-10-25] MEDS ORDERED: MIDAZOLAM INJ 2MG/2ML VIAL (J2250 PER 1MG) As Ordered ONE (08:14)
[2022-10-25] MEDS ORDERED: fentaNYL 100 MCG/2 ML INJECTION As Ordered ONE (08:14)
[2022-10-25] MEDS ORDERED: ONDANSETRON 4MG 2ML VIAL As Ordered ONE ×2 (08:14→13:24)
[2022-10-25] MEDS ORDERED: LIDOCAINE 2% 100MG/5ML SDV (FOR ANES.) As Ordered ONE (08:15)
[2022-10-25] MEDS ORDERED: SUGAMMADEX SODIUM 500 MG/5 ML VIAL (BRIDION) As Ordered ONE (08:18)
[2022-10-25] MEDS ORDERED: GENTAMICIN SULF 80MG/2ML VIAL As Ordered ONE (08:44)
[2022-10-25] MEDS ORDERED: BUPIVACAINE HCL 0.25% 10ML VIAL As Ordered ONE (08:44)
[2022-10-25] MEDS ORDERED: BUPIVACAINE LIPOSOME/PF 1.3% 20ML VIAL (13.3MG/ML)(EXPAREL) As Ordered ONE (08:45)
[2022-10-25] MEDS ORDERED: EPINEPHrine INJ 1 MG/ML 1ML AMP As Ordered ONE (09:19)
[2022-10-25] MEDS ORDERED: LIDOCAINE 1% MDV 20ML VIAL As Ordered ONE (09:19)
[2022-10-25] MEDS ORDERED: PHENYLephrine 500MCG 5ML (100MCG/ML) SYRINGE As Ordered ONE (09:37)
[2022-10-25] MEDS ORDERED: HYDROmorphone HCL 2MG/ML 1ML VIAL As Ordered ONE (10:35)
[2022-10-25] MEDS ORDERED: oxyCODONE 5MG TAB PO PRN (13:30)
[2022-10-25] MEDS ORDERED: fentaNYL 100 MCG/2 ML INJECTION IV PRN (13:30)
[2022-10-25] MEDS ORDERED: ONDANSETRON 4MG 2ML VIAL IV PRN ×2 (13:30→13:35)
[2022-10-25] MEDS ORDERED: PERCOCET 5MG/325MG TAB PO PRN (13:35)
[2022-10-25] MEDS ORDERED: traMADol 50 MG TAB PO PRN (13:35)
[2022-10-25] MEDS ORDERED: ACETAMINOPHEN TAB 650MG DOSE (2X325MG) PO PRN (13:35)
[2022-10-25] MEDS ORDERED: ceFAZolin SOD 2 GM in IV 1 EA IV ONE (14:00)
[2022-10-25] MEDS: LR 1,000 ML IV SCH (16:33)
[2022-10-26 02:00] VITALS: BP 118/75
[2022-10-26] MEDS: LR 1,000 ML IV SCH (03:09)
[2022-10-26 06:00] VITALS: BP 118/73
[2022-10-26] MEDS ORDERED: TRAM50TA2 PO (09:29)
== END 2022-10-26 13:40 | disposition home or self-care (01) ==
LOC: M SDC 06:13 → M MS5PR 06:14
PROVIDERS: ADMIT Plastic Surgery Surgery of the Hand; ATTEND Plastic Surgery Surgery of the Hand
DX: N62 Hypertrophy of breast (principal); L30.4 Erythema intertrigo; M54.9 Dorsalgia, unspecified; F41.9 Anxiety disorder, unspecified; K21.9 Gastro-esophageal reflux disease without esophagitis; K58.1 Irritable bowel syndrome with constipation; Z98.84 Bariatric surgery status; Z79.899 Other long term (current) drug therapy; Z88.8 Allergy status to other drugs, medicaments and biological substances; Z86.711 Personal history of pulmonary embolism
CPT/HCPCS: 19318; 88305; 96374; C9290; J0131; J0171; J0690; J1100; J1170; J1580; J2250; J2370; J2405; J3010

== ENCOUNTER → 2023-06-14 | Outpatient (CLI) | payer OTHER ==
[~2023-06-14] MED LIST changes: +TRAM50TA2 PO; -ceFAZolin SOD 2 GM in IV 1 EA IV ONE
== END ==
LOC: M RAD 09:18
PROVIDERS: ATTEND Internal Medicine Rheumatology
DX: R76.8 Other specified abnormal immunological findings in serum (principal); M35.3 Polymyalgia rheumatica; M35.00 Sjogren syndrome, unspecified; I73.00 Raynaud's syndrome without gangrene

== ENCOUNTER → 2023-06-14 | Outpatient (REF) | payer OTHER ==
[2023-06-14 12:38] LABS: BASO % 0.8 % (0.0-1.0); EOS # 0.1 10^3/uL (0.0-0.5); HEMATOCRIT 39.9 % (36.0-47.0); HEMOGLOBIN 13.4 g/dl (12.0-15.5); LYMPH # 1.5 10^3/uL (1.5-5.0); LYMPH % 31.1 % (24.0-44.0); MEAN CORPUSCULAR HEMOGLOBIN 30.2 pg (27.0-33.0); MEAN CORPUSCULAR HGB CONC 33.6 g/dl (32.0-36.5); MEAN CORPUSCULAR VOLUME 90.1 fl (80.0-96.0); MONO # 0.4 10^3/uL (0.0-0.8); MONO % 7.4 % (2.0-8.0); NEUTROPHILS # 2.9 10^3/uL (1.5-8.5); NEUTROPHILS % 59.3 % (36.0-66.0); PLATELET COUNT, AUTOMATED 310 10^3/uL (150-450); RED BLOOD COUNT 4.43 10^6/uL (4.00-5.40); WHITE BLOOD COUNT 4.9 10^3/uL (4.0-10.0)
[2023-06-14 12:41] LABS: APPEARANCE, URINE CLEAR (CLEAR); BACTERIA, URINE AUTO NEGATIVE (NEGATIVE); BILIRUBIN, URINE AUTO NEGATIVE (NEGATIVE); BLOOD, URINE BLOOD NEGATIVE (NEGATIVE); COLOR, URINE YELLOW (YELLOW); GLUCOSE, URINE (UA) AUTO NEGATIVE (NEGATIVE); KETONE, URINE AUTO NEGATIVE (NEGATIVE); LEUKOCYTE ESTERASE, URINE AUTO NEGATIVE (NEGATIVE); MUCUS, URINE SMALL (NEGATIVE); NITRITE, URINE AUTO NEGATIVE (NEGATIVE); PROTEIN, URINE AUTO NEGATIVE (NEGATIVE); RBC, URINE AUTO 1 /HPF (0-3); SPECIFIC GRAVITY URINE AUTO 1.019 (1.002-1.035); SQUAMOUS EPITHELIAL CELL UR AU 1 /HPF (0-6); UROBILINOGEN, URINE AUTO 0.2 mg/dL (0.0-2.0); WBC, URINE AUTO 0 /HPF (0-3)
[2023-06-14 13:00] LABS: TOTAL PROTEIN,RANDOM URINE 8.9 MG/DL (0.0-14.0)
[2023-06-14 13:05] LABS: CREATININE,RANDOM URINE 91.5 MG/DL
[2023-06-14 13:06] LABS: CPK CREATINE PHOSPHOKINASE 137 U/L (34-145); LDH LACTATE DEHYDROGENASE 155 U/L (120-246)
[2023-06-14 13:07] LABS: ALBUMIN 4.1 G/DL (3.2-5.2); ALKALINE PHOSPHATASE 69 U/L (46-116); ALT/SGPT 13 U/L (7.0-40); AST/SGOT 12 U/L (<34); BILIRUBIN,TOTAL 0.6 MG/DL (0.3-1.2); BLOOD UREA NITROGEN 12 MG/DL (9-23); C REACTIVE PROTEIN QUANTITATIV < 0.40 MG/DL (<1.0); CALCIUM LEVEL 8.7 MG/DL (8.5-10.1); CARBON DIOXIDE LEVEL 28 MMOL/L (20-31); CHLORIDE LEVEL 103 MMOL/L (98-107); CREATININE FOR GFR 0.59 MG/DL (0.55-1.30); GLOMERULAR FILTRATION RATE > 60.0 (>58); GLUCOSE, FASTING 86 MG/DL (60-100); SODIUM LEVEL 139 MMOL/L (136-145)
[2023-06-14 13:08] LABS: COMPLEMENT C3 132.2 MG/DL (90.0-170.0)
[2023-06-14 13:09] LABS: COMPLEMENT C4 31.7 MG/DL (12-36)
[2023-06-14 13:32] LABS: ERYTHROCYTE SEDIMENTATION RATE 21 mm/hr (0-20)
== END ==
LOC: M SFHCRHEU 08:27
PROVIDERS: ATTEND Internal Medicine Rheumatology
DX: R76.8 Other specified abnormal immunological findings in serum (principal); M35.3 Polymyalgia rheumatica; M35.00 Sjogren syndrome, unspecified; I73.00 Raynaud's syndrome without gangrene

== ENCOUNTER → 2023-08-06 | Outpatient (REF) | payer OTHER ==
[2023-08-06 20:08] LABS: HEPATITIS B CORE ANTIBODY IGM NEGATIVE (NEGATIVE); HEPATITIS C VIRUS ABY INDEX 0.17 INDEX (<0.8)
== END ==
LOC: M SFHCRHEU 11:13
PROVIDERS: ATTEND Internal Medicine Rheumatology
DX: M45.8 Ankylosing spondylitis sacral and sacrococcygeal region (principal); M47.818 Spondylosis without myelopathy or radiculopathy, sacral and sacrococcygeal region; R76.8 Other specified abnormal immunological findings in serum; M35.3 Polymyalgia rheumatica; M35.00 Sjogren syndrome, unspecified; I73.00 Raynaud's syndrome without gangrene

== ENCOUNTER → 2023-12-20 | Outpatient (REF) | payer OTHER | LOC: M LAB REF 17:26 | PROVIDERS: ATTEND Plastic Surgery Surgery of the Hand | DX: L90.5 Scar conditions and fibrosis of skin (principal) ==

== ENCOUNTER 2025-06-30 11:00 | Day surgery (SDC) | payer OTHER ==
[~2025-06-30] VITALS: Ht 165.1 cm; Wt 64.7 kg
[~2025-06-30 11:00] MED LIST changes: +LIDOCAINE 2% 100 MG/5 ML SDV (FOR ANES.) As Ordered ONE
[2025-06-30] MEDS ORDERED: PROBCAP14 PO (12:18)
[2025-06-30 14:43] VITALS: TEMP 97
[2025-06-30 15:00] VITALS: BP 140/91; O2SAT 99
== END 2025-06-30 15:02 | disposition home or self-care (01) ==
LOC: M OPP 11:00
PROVIDERS: ATTEND Internal Medicine Gastroenterology
DX: Z12.11 Encounter for screening for malignant neoplasm of colon (principal); K64.0 First degree hemorrhoids; R10.13 Epigastric pain; Z98.84 Bariatric surgery status; Z88.1 Allergy status to other antibiotic agents; Z91.013 Allergy to seafood; Z91.018 Allergy to other foods; Z91.030 Bee allergy status; Z91.048 Other nonmedicinal substance allergy status; Z79.899 Other long term (current) drug therapy; Z86.711 Personal history of pulmonary embolism
CPT/HCPCS: 43239; 45378; 88305; J3010